=== PATIENT | male | born 1975 | race Caucasian/White ===

== ENCOUNTER 2016-07-09 08:40 | Emergency (ER) | payer OTHER ==
[2016-07-09] MEDS ORDERED: KETOROLAC 60 MG/2 ML VIAL IM STA (10:50)
[2016-07-09] MEDS ORDERED: LIDOCAINE PATCH 5% TOP STA (10:50)
[2016-07-09] MEDS ORDERED: KETOROLAC 60 MG/2 ML VIAL ONE (10:51)
[2016-07-09] MEDS ORDERED: LIDOCAINE PATCH 5% TOP ONE (10:52)
== END 2016-07-09 13:17 | disposition home or self-care (01) ==
DX: M54.5 Low back pain (principal); X50.0XXA Overexertion from strenuous movement or load, initial encounter; Y93.89 Activity, other specified; Y92.139 Unspecified place military base as the place of occurrence of the external cause; Y99.1 Military activity
CPT/HCPCS: 96372; 99283; A9270